=== PATIENT | male | born 1960 | race Two or more races ===

== ENCOUNTER 2024-06-25 22:37 | Inpatient (IN) | payer OTHER ==
[~2024-06-25] VITALS: Ht 172.7 cm; Wt 52.0 kg
--- NOTE | 2024-06-25 23:36 | DVH ---
EXAMINATION: AP portable chest radiograph CLINICAL HISTORY: seizure COMPARISON: None FINDINGS: Lead wires overlie the thorax. No dominant consolidation. The costophrenic angles appear clear. No sizable pleural effusion or pneu mothorax identified. The cardiomediastinal silhouette appears within normal limits given technique. IMPRESSION: No acute cardiopulmonary findings as visualized.
[2024-06-25] MEDS: SODIUM CHLORIDE 0.9% 1,000 ML IVB ONE (23:39)
--- NOTE | 2024-06-25 23:40 | DVH ---
EXAM: CT HEAD WITHOUT CONTRAST INDICATION: seizure TECHNIQUE: CT of the head without intravenous contrast. Radiation Dose : 1. Head: CT Dose: CTDI volume is 55 mGy. Dose-length product is 968 mGy*cm The dose indicators for CT are the volume Computed Tomography (CT) Dose Index (CTDIvol) and the Dose Length Product (DLP), and are measured in units of mGy and mGy-cm, respectively. These indicators are not patient dose, but values generated from the CT scanner acquisition factors. The report includes radiation exposure data for exposures received during this examination. COMPARISON: None FINDINGS: There is no evidence of acute intracranial hemorrhage, extra-axial collection, mass effect, midline s hift, herniation or hydrocephalus. The ventricles, sulci and cisterns are age appropriate. The abernathy-white differentiation is intact. Patchy periventricular and subcortical white matter hypoattenuation is nonspecific but may be related to small vessel ischemic disease. The visualized paranasal sinuses and mastoid air cells are clear. The surrounding soft tissues and osseous structures are unremarkable. IMPRESSION: 1. No acute intracranial abnormality. Radiation optimization: All CT scans at this facility use at least one of these dose optimization luisito hniques: automated exposure control mA and/or kV adjustment per patient size (includes targeted exam s where dose is matched to clinical indication) or iterative reconstruction.
[2024-06-25] MEDS: ACCU-CHEK COMFORT CURVE STRIP VI ONE (23:44)
[2024-06-25 23:46] VITALS: PULSE 96; RESP 13; O2SAT 95
[2024-06-26 00:10] LABS: Basophils # (auto) 0 10 ^3/uL (0-0.2); Basophils % (auto) 0.1 % (0.0-2.0); Eosinophils # (auto) 0 10 ^3/uL (0-0.8); Eosinophils % (auto) 0.1 % (0.0-7.0); Hematocrit 42.6 % (41.0-53.0); Hemoglobin 14.3 g/dL (13.5-17.5); Lymphocytes # (auto) 1.1 10 ^3/uL (0.4-5.4); Lymphocytes % (auto) 12.7 % (10.0-50.0); Mean Corpuscular Hemoglobin 30.3 pg (28.0-32.0); Mean Corpuscular Hgb Conc. 33.7 g/dL (32.0-36.0); Monocytes # (auto) 0.5 10 ^3/uL (0-1.3); Monocytes % (auto) 6.2 % (0.0-12.0); Neutrophils # (auto) 7.1 10 ^3/uL (1.6-8.6); Neutrophils % (auto) 80.9 % (37.0-80.0); Nucleated Red Blood Cells % 0.2 %; Platelet Count (auto) 246 10^3/uL (140-450); Red Blood Cells 4.73 10^6/uL (4.5-5.90); White Blood Cell 8.8 10^3/uL (4.4-10.8)
[2024-06-26 00:29] LABS: Alanine Aminotransferase 29 U/L (7-40); Albumin 3.9 g/dL (3.2-4.8); Alkaline Phosphatase 54 U/L (46-116); Anion Gap 7 (5-15); Aspartate Aminotransferase 23 U/L (13-40); BUN/Creatinine Ratio 21.6 (10.0-20.0); Blood Urea Nitrogen 21 mg/dL (9-23); Calcium 9.2 mg/dL (8.7-10.4); Carbon Dioxide 25 mmol/L (20-31); Magnesium 1.9 mg/dL (1.6-2.6); Sodium 141 mmol/L (136-145)
[2024-06-26 00:30] LABS: Bilirubin, Total 0.3 mg/dL (0.2-1.0); Chloride 109 mmol/L (98-107); Glucose 137 mg/dL (74-106); Total Protein 6.4 g/dL (5.7-8.2)
--- NOTE | 2024-06-26 00:33 | ED.PDOC ---
History of Present Illness HPI Comments 64 y/o M, with a Hx of 30 year alcohol sobriety, is BIBA for c/o seizure episode, today. Per EMS report, patient was reported to have had seizure episode of 2x minute in duration at-home, without prior history of, that was witnessed by spouse, who called. Seizure episode was commented by on scene to have been characterized by "twitching" and "eyes-rolling back." Patient was noted to have been A&Ox1 on scene when found by EMS staff and transitioned to A&Ox3 upon arrival to ED. At time of assessment, patient comments on having no recollection of events that transpired, today, including seizure episode event, and complains of a bite wound kulwinder, with associated pain, in the inside of his right cheek. Patient denies any additional injuries, incontinence, weakness, or other associated symptoms or modifiers at this time. Per spouse, who arrived to ED following initial assessment, patient was placed on baby ASA, recently, following a "mini stroke" he had 2x days ago. Chief Complaint: Seizure Time Seen by MD: 23:10 Reviewed Notes: Nurses Notes, International Nurse Notes, Medications, Allergies Allergies: Coded Allergies: NO KNOWN ALLERGIES (Unverified , 06/26/24) Information Source: Patient, Emergency Med Personnel, Spouse (came later following initial assessment and reported additional information ) Mode of Arrival: EMS Severity: Moderate Timing: Hours Duration: Minutes Prehospital treatment: 12 Lead EKG, Accucheck (119), Boilermaker'S Assistant Review of Systems: REVIEW OF SYSTEMS: No fever, no chills, or fatigue HEENT: No sore throat, no earache, no congestion, no neck pain. Cardiac: No chest pain. No palpitations. Lungs: No shortness of breath, no cough. GI: No nausea, no vomiting, no diarrhea, no constipation, no abdominal pain : No dysuria, frequency, or urgency. No hematuria. Musculoskeletal: No joint pain , no joint swelling, no extremity edema. Skin: No rash, no itching. Neuro: Seizure, no headache, no dizziness, no weakness Vital Signs Vital Signs Date Time Temp Pulse Resp B/P (MAP) Pulse Ox O2 Delivery O2 Flow Rate FiO2 06/26/24 05:50 60 19 124/82 (96) 96 06/25/24 23:46 Room Air* 0 21 06/25/24 23:46 97.8 97.8 Physical Exam General: Awake, alert and oriented. No acute distress. Skin: Skin in warm, dry and intact. Appropriate color for ethnicity. Nailbeds pink with no cyanosis. HEENT: The head is normocephalic and atraumatic. Conjunctivae are clear without exudates or hemorrhage. Sclera is non-icteric. EOM are intact. No signs of nystagmus. Eyelids are normal in appearance without swelling or lesions. Oral mucosa is pink and moist. PERRL. Neck: The neck is supple with normal range of motion. No JVD. Cardiac: Heart rate and rhythm are normal. No murmurs, gallops, or rubs are auscultated. Respiratory: No signs of respiratory distress. Lung sounds are clear in all lobes bilaterally without rales, ronchi, or wheezes. Abdominal: Abdomen is soft, non-tender without distention. Bowel sounds are present and normoactive in all four quadrants. Extremities: Upper and lower extremities are atraumatic in appearance without deformity or edema. Neurological: The patient is awake, alert and oriented to person and time, with normal speech but does not recall any events throughout the day, today. Speech is clear. There is no facial asymmetry. Dbxilv-kb-yooa test assessment was normal Psychiatric: Appropriate mood and affect. Good judgement and insight. No visual or auditory hallucinations. Past Medical History PAST MEDICAL HISTORY: Denies Surgical History: Denies all surgeries Family History Family History: Unknown Social History Smoker: Non-Smoker Alcohol: Sober (30+ years endorsement ) Drugs: Denies Drug Use Lives In: Home Was a procedure done? Was a procedure done?: No Differential Dx Considerations may include: seizure, pseudoseizure X-Ray, Labs, Meds, VS Vital Signs Date Time Temp Pulse Resp B/P (MAP) Pulse Ox O2 Delivery O2 Flow Rate FiO2 06/26/24 05:50 60 19 124/82 (96) 96 06/26/24 03:50 65 19 129/83 (98) 96 06/26/24 01:50 97 14 149/91 (110) 96 06/25/24 23:46 96 13 95 Room Air* 0 21 06/25/24 23:46 97.8 96 13 142/91 (108) 95 97.8 06/25/24 22:41 98.8 82 18 144/82 (102) 98 Lab Test 06/26/24 00:28 06/25/24 23:42 06/25/24 23:39 Range/Units Urine Color Light-yellow Yellow Urine Clarity Clear Clear Urine pH 6.5 5.0-9.0 Urine Specific [place] 1.024 1.001-1.035 Urine Protein Negative Negative Urine Ketones Trace Negative Urine Blood Negative Negative /uL Urine Nitrite Negative Negative Urine Bilirubin Negative Negative Urine Urobilinogen Normal Negative mg/dL Urine Leukocyte Esterase Negative Negative /uL Urine RBC <1 0 - 3 /hpf Urine WBC 1 0 - 3 /hpf Urine Squamous Epithelial Cells None seen <5 /hpf Urine Bacteria None seen None Seen /hpf Urine Mucus Few None Seen Urine Glucose Normal Normal mg/dL Urine Opiates Screen Neg NEGATIVE Urine Fentanyl Screen Neg NEGATIVE Urine Barbiturates Screen Neg NEGATIVE Urine Phencyclidine Screen Neg NEGATIVE Urine Amphetamines Screen Neg NEGATIVE Urine Benzodiazepines Screen Neg NEGATIVE Urine Cocaine Screen Neg NEGATIVE Urine Cannabinoids Screen Neg NEGATIVE POC Glucose 107 H 70-106 mg/dl White Blood Count 8.8 4.4-10.8 10^3/uL Red Blood Count 4.73 4.5-5.90 10^6/uL Hemoglobin 14.3 13.5-17.5 g/dL Hematocrit 42.6 41.0-53.0 % Mean Corpuscular Volume 90.0 80.0-100.0 fL Mean Corpuscular Hemoglobin 30.3 28.0-32.0 pg Mean Corpuscular Hemoglobin Concent 33.7 32.0-36.0 g/dL Red Cell Distribution Width 14.0 11.8-14.3 % Platelet Count 246 140-450 10^3/uL Mean Platelet Volume 8.0 6.9-10.8 fL Neutrophils (%) (Auto) 80.9 H 37.0-80.0 % Lymphocytes (%) (Auto) 12.7 10.0-50.0 % Monocytes (%) (Auto) 6.2 0.0-12.0 % Eosinophils (%) (Auto) 0.1 0.0-7.0 % Basophils (%) (Auto) 0.1 0.0-2.0 % Neutrophils # (Auto) 7.1 1.6-8.6 10 ^3/uL Lymphocytes # (Auto) 1.1 0.4-5.4 10 ^3/uL Monocytes # (Auto) 0.5 0-1.3 10 ^3/uL Eosinophils # (Auto) 0 0-0.8 10 ^3/uL Basophils # (Auto) 0 0-0.2 10 ^3/uL Nucleated Red Blood Cells 0.2 % Sodium Level 141 136-145 mmol/L Potassium Level 4.0 3.5-5.1 mmol/L Chloride Level 109 H 98-107 mmol/L Carbon Dioxide Level 25 20-31 mmol/L Anion Gap 7 5-15 Blood Urea Nitrogen 21 9-23 mg/dL Creatinine 0.97 0.700-1.30 mg/dL Glomerular Filtration Rate Calc 88 >90 mL/min BUN/Creatinine Ratio 21.6 H 10.0-20.0 Serum Glucose 137 H 74-106 mg/dL Calcium Level 9.2 8.7-10.4 mg/dL Magnesium Level 1.9 1.6-2.6 mg/dL Total Bilirubin 0.3 0.2-1.0 mg/dL Aspartate Amino Transferase (AST) 23 13-40 U/L Alanine Aminotransferase (ALT) 29 7-40 U/L Alkaline Phosphatase 54 46-116 U/L Total Protein 6.4 5.7-8.2 g/dL Albumin 3.9 3.2-4.8 g/dL Plasma/Serum Blood Alcohol < 3.0 <10 mg/dL Current Medications Medications (Trade) Dose Ordered Sig/Paola Route Start Time Stop Time Status Last Admin Diagnostic Test (Pha) (Accu-Chek Comfort Curve T) 1 strip ONCE ONCE 06/25/24 23:15 06/25/24 23:16 DC 06/25/24 23:44 Sodium Chloride 1,000 ml @ 1,000 mls/hr Q1H ONCE IVB 06/25/24 23:15 06/26/24 00:14 DC 06/25/24 23:39 Levetiracetam 100 ml @ 400 mls/hr ONCE ONCE IV 06/26/24 01:30 06/26/24 01:44 DC 06/26/24 01:[address] [address] Ph: [phone] DIAGNOSTIC IMAGING Diagnostic Imaging Report : [id number] Signed PATIENT: ZIBOBBY ACCT: [id number] UNIT: [id number] : 1960 LOC: ER ROOM / BED: / AGE / SEX: 64 / M ADM STATUS: REG ER SERVICE 10 ORDERING PHYSICIAN: CARLOS GABRIEL MD PROCEDURE(s): HWOCT - HEAD WITHOUT CONTRAST REASON: seizure ORDER NUMBER(s): [id number], ACCESSION NUMBER(s): [id number] EXAM: CT HEAD WITHOUT CONTRAST INDICATION: seizure TECHNIQUE: CT of the head without intravenous contrast. Radiation Dose : 1. Head: CT Dose: CTDI volume is 55 mGy. Dose-length product is 968 mGy*cm The dose indicators for CT are the volume Computed Tomography (CT) Dose Index (CTDIvol) and the Dose Length Product (DLP), and are measured in units of mGy and mGy-cm, respectively. These indicators are not patient dose, but values generated from the CT scanner acquisition factors. The report includes radiation exposure data for exposures received during this examination. COMPARISON: None FINDINGS: There is no evidence of acute intracranial hemorrhage, extra-axial collection, mass effect, midline shift, herniation or hydrocephalus. The ventricles, sulci and cisterns are age appropriate. The abernathy-white differentiation is intact. Patchy periventricular and subcortical white matter hypoattenuation is nonspecific but may be related to small vessel ischemic disease. The visualized paranasal sinuses and mastoid air cells are clear. The surrounding soft tissues and osseous structures are unremarkable. IMPRESSION: 1. No acute intracranial abnormality. Radiation optimization: All CT scans at this facility use at least one of these dose optimization techniques: automated exposure control mA and/or kV adjustment per patient size (includes targeted exams where dose is matched to clinical indication) or iterative reconstruction. ATED BY: MIRIAN HOLLAND MD DICTATED DATE/TIME: 06/25/242337 SIGNED BY: MIRIAN HOLLAND MD SIGNED DATE/TIME: 06/25/242337 CC: [place] [id number] Ph: [phone] DIAGNOSTIC IMAGING Diagnostic Imaging Report : [id number] Signed PATIENT: BOBBY PINON ACCT: [id number] UNIT: [id number] : 1960 LOC: ER ROOM / BED: / AGE / SEX: 64 / M ADM STATUS: REG ER SERVICE 10 ORDERING PHYSICIAN: CARLOS GABRIEL MD PROCEDURE(s): CXRP - CHEST PORTABLE REASON: seizure ORDER NUMBER(s): [id number], ACCESSION NUMBER(s): [id number] EXAMINATION: AP portable chest radiograph CLINICAL HISTORY: seizure COMPARISON: None FINDINGS: Lead wires overlie the thorax. No dominant consolidation. The costophrenic angles appear clear. No sizable pleural effusion or pneumothorax identified. The cardiomediastinal silhouette appears within normal limits given technique. IMPRESSION: No acute cardiopulmonary findings as visualized. ATED BY: JAMES PERDUE MD DICTATED DATE/TIME: 06/25/242332 SIGNED BY: JAMES PERDUE MD SIGNED DATE/TIME: 06/25/242332 CC: Time of 1ST Reevaluation: 23:40 Reevaluation 1ST: Unchanged Patient Education/Counseling: Diagnosis, Treatment Family Education/Counseling: Diagnosis, Treatment Departure 1 Departure Time of Disposition: 04:55 Impression: Primary Impression: Seizure Additional Impression: Altered mental status Disposition: 02 SHORT TERM HOSPITAL Condition: Stable Comments 64-year-old male with new onset seizure-like activity. Patient was evaluated in the emergency department, given 1 g of Keppra IV, 1 L bolus of normal saline. Per at bedside patient is still has not returned to his baseline. He is repeating himself, appears not to remember things that he normally would such as what medications he takes and what they are for. He is able to state the month and year. Discussed with Dr. Tee at [facility] who accepts patient for transfer Authorization number [id number] [facility] has no bed availability and authorizes admission at this facility. Extensive evaluation was performed in attempt to identify or rule out: (See differential diagnosis section) The following tests were ordered, and results were reviewed by me: (See diagnostic results section) The following test were independently interpreted by me: EKG-sinus rhythm no STEMI, chest x-ray-no acute disease I reviewed and agreed with the following test results read by other providers: N/A I reviewed the following notes from the pt's past medical encounters: (None available at this time) Additional information was gathered from interviewing the following independent historians: Patient's at bedside Discussion of management or test interpretation with external physician/other qualified health customer care specialist: Dr. Tee Addressed an acute or chronic illness that poses a threat to life or bodily function: Seizure Decision regarding hospitalization or escalation of hospital level of care: Risk and benefits of admission for further treatment of patient's condition was considered. Due to patient's current clinical condition, high risk of decline and poor outcome if discharged and need for further inpatient management and monitoring, patient will be admitted to the hospital. Critical Care Note Critical Care Time?: No Stability Stability form required: No Heart Score Heart Score: Heart Score Response (Comments) Value History N/A 0 EKG N/A 0 Age N/A 0 Risk Factors N/A 0 Troponin N/A 0 Total 0 I personally scribed for CARLOS GABRIEL MD ([email or web address]) on 06/26/24 at 00:33. Electronically submitted by Jake Maradiaga ([email or web address]). I personally scribed for CARLOS GABRIEL MD ([email or web address]) on 06/26/24 at 00:34. Electronically submitted by Jake Maradiaga ([email or web address]). I personally scribed for CARLOS GABRIEL MD ([email or web address]) on 06/26/24 at 05:35. Electronically submitted by Jake Maradiaga ([email or web address]). CARLOS GABRIEL MD Jun 26, 2024 00:33
[2024-06-26 00:35] LABS: Urine Bacteria None Seen /hpf (None Seen)
[2024-06-26 01:03] LABS: Urine Blood Negative /uL (Negative); Urine Clarity Clear (Clear); Urine Color Light-Yellow (Yellow); Urine Mucus FEW (None Seen); Urine Protein, UAD Negative (Negative); Urine Specific Gravity 1.024 (1.001-1.035); Urine Squamous Epithelial Cell None Seen /hpf (<5); Urine Urobilinogen Normal (Negative); Urine WBC 1 /hpf (0 - 3); Urine pH 6.5 (5.0-9.0)
[2024-06-26] MEDS: levETIRAcetam 1000 mg/100ml 100 ML IV ONE (01:36)
[2024-06-26 01:47] LABS: Blood Alcohol < 3.0 mg/dL (<10)
[2024-06-26 01:48] LABS: Amphetamine Screen, Urine Neg (NEGATIVE); Barbiturate Scree,Urine Neg (NEGATIVE); Benzodiazephine Screen, Urine Neg (NEGATIVE); Cannabinoid Screen, Urine Neg (NEGATIVE); Cocaine Screen, Urine Neg (NEGATIVE); Opiate Scree,Urine Neg (NEGATIVE); Phencyclidine Screen, Urine Neg (NEGATIVE)
[2024-06-26 08:06] VITALS: PULSE 65; RESP 11; O2SAT 95
--- NOTE | 2024-06-26 10:26 | ECG ---
[facility] Test Date: 2024-06-26 Test Time: 08:34:42 Pat Name: BOBBY PINON Department: ER Room: Gender: M Athletic Gear Custodian: LEO : 1960 Requested By: CARLOS GABRIEL Order Number: [id number] Reading MD: Measurements Intervals Preemption Rate: 67 P: 58 [place]: 147 QRS: 61 QRSD: 103 T: 16 QT: 375 QTc: 396 Interpretive Statements Sinus rhythm Minimal ST elevation, lateral leads Please click the below link to view image of tracing.
[2024-06-26] MEDS ORDERED: DOCUSATE SOD 100 MG CAP PO PRN (11:00)
[2024-06-26] MEDS ORDERED: ONDANSETRON HCL 4 MG/2 ML VIAL IV PRN (11:00)
[2024-06-26] MEDS ORDERED: NITROGLYCERIN 0.4 MG SL TAB SL PRN (11:00)
[2024-06-26] MEDS ORDERED: MORPHINE SULFATE INJ 2 MG/ml SYRG IV PRN (11:00)
[2024-06-26] MEDS ORDERED: HYDROcodone-ACET 5/325MG TAB PO PRN (11:00)
--- NOTE | 2024-06-26 11:08 | DVHHP2 ---
History of Present Illness Reason for Visit: Seizure disorder History of Present Illness The patient is a 64-year-old male who presented to [facility] ED accompanied by with complaint of seizures activity. As reported by , patient had seizure episode that lasted for 2 minutes at home so EMS were called. described activities as twitching and eyes rolling back episode, and very confused. When EMS arrived on the scene, patient regains his consciousness alert oriented x3, but unable to recall event. Patient was seen and evaluated in the ED, laboratory data shows WBC 8.8, platelets 246, sodium 141, potassium 4.0, BUN 21, creatinine 0.97, GFR 88, glucose 137, blood pressure 144/82, heart rate 70, temperature 97.8 F, O2 saturation 95% on room. On my assessment, at bedside, patient denied chest pain, no headache, no dizziness, no diaphoresis, no shortness of breath, no nausea, no vomiting, no fever, no chills. Patient was admitted for further evaluation and medical management. Past Medical History Denies past medical history Past Surgical History Denies all surgeries Family History Reviewed, noncontributory to the management of this case. Past Social History The patient lives at home, denies smoking, alcohol or illicit drugs abuse. Review of Systems Constitutional: Yes: Weakness; No: Fever, Chills, Sweats, Malaise, Other Eyes: No: Pain, Vision change, Conjunctivae inflammation, Eyelid inflammation, Other, Redness ENT: No: Ear pain, Ear discharge, Nose pain, Nose discharge, Nose congestion, Mouth pain, Mouth swelling, Throat pain, Throat swelling, Other Respiratory: No: Cough, Dry, Shortness of breath, SOB with excertion, Wheezing, Hemoptysis, Pleuritic Pain, Sputum, Wheezing, Other Cardiovascular: No: Chest Pain, Palpitations, Orthopnea, Paroxysmal Noc. Dyspnea, Edema, Lt Headedness, Other Gastrointestinal: No: Nausea, Vomiting, Abdominal Pain, Diarrhea, Constipation, Melena, Hematochezia, Other Genitourinary: No Dysuria, No Frequency, No Incontinence, No Hematuria, No Retention, No Other Musculoskeletal: No: other, neck pain, shoulder pain, arm pain, back pain, hand pain, leg pain, foot pain Skin: No: Rash, Lesions, Jaundice, Bruising, Other Neurological: Confusion, Seizures; No: Weakness, Numbness, Incoordination, Change in speech, Other Allergies: Coded Allergies: NO KNOWN ALLERGIES (Unverified , 06/26/24) Exam Vital Signs Vital Signs Date Time Temp Pulse Resp B/P (MAP) Pulse Ox O2 Delivery O2 Flow Rate FiO2 06/26/24 10:25 57 21 110/61 (77) 95 06/26/24 08:06 Room Air* 0 21 06/26/24 07:52 98.0 98.0 General Appearance: Alert, Cooperative, No acute distress, Other (Oriented x2) HEENT: Atraumatic, PERRLA, EOMI, Mucous membr. moist/pink Respiratory: Clear to auscultation, Normal air movement Cardiovascular: Regular rate, Normal S1, Normal S2, No murmurs Abdominal: Normal bowel sounds, Soft, No tenderness, No hepatospenomegaly, No masses Extremities: No clubbing, No cyanosis, No edema, Normal pulses, No tenderness/swelling Skin: No rashes, No breakdown Neuro: Normal speech, Normal tone, Sensation intact, Cranial nerves 3-12 NL, Reflexes 2+, Other (Generalized weakness) Psych/Mental Status: Mental status NL, Mood NL Labs/Xrays Labs Test 06/26/24 00:28 06/25/24 23:42 06/25/24 23:39 Range/Units Urine Color Light-yellow Yellow Urine Clarity Clear Clear Urine pH 6.5 5.0-9.0 Urine Specific [place] 1.024 1.001-1.035 Urine Protein Negative Negative Urine Ketones Trace Negative Urine Blood Negative Negative /uL Urine Nitrite Negative Negative Urine Bilirubin Negative Negative Urine Urobilinogen Normal Negative mg/dL Urine Leukocyte Esterase Negative Negative /uL Urine RBC <1 0 - 3 /hpf Urine WBC 1 0 - 3 /hpf Urine Squamous Epithelial Cells None seen <5 /hpf Urine Bacteria None seen None Seen /hpf Urine Mucus Few None Seen Urine Glucose Normal Normal mg/dL Urine Opiates Screen Neg NEGATIVE Urine Fentanyl Screen Neg NEGATIVE Urine Barbiturates Screen Neg NEGATIVE Urine Phencyclidine Screen Neg NEGATIVE Urine Amphetamines Screen Neg NEGATIVE Urine Benzodiazepines Screen Neg NEGATIVE Urine Cocaine Screen Neg NEGATIVE Urine Cannabinoids Screen Neg NEGATIVE POC Glucose 107 H 70-106 mg/dl White Blood Count 8.8 4.4-10.8 10^3/uL Red Blood Count 4.73 4.5-5.90 10^6/uL Hemoglobin 14.3 13.5-17.5 g/dL Hematocrit 42.6 41.0-53.0 % Mean Corpuscular Volume 90.0 80.0-100.0 fL Mean Corpuscular Hemoglobin 30.3 28.0-32.0 pg Mean Corpuscular Hemoglobin Concent 33.7 32.0-36.0 g/dL Red Cell Distribution Width 14.0 11.8-14.3 % Platelet Count 246 140-450 10^3/uL Mean Platelet Volume 8.0 6.9-10.8 fL Neutrophils (%) (Auto) 80.9 H 37.0-80.0 % Lymphocytes (%) (Auto) 12.7 10.0-50.0 % Monocytes (%) (Auto) 6.2 0.0-12.0 % Eosinophils (%) (Auto) 0.1 0.0-7.0 % Basophils (%) (Auto) 0.1 0.0-2.0 % Neutrophils # (Auto) 7.1 1.6-8.6 10 ^3/uL Lymphocytes # (Auto) 1.1 0.4-5.4 10 ^3/uL Monocytes # (Auto) 0.5 0-1.3 10 ^3/uL Eosinophils # (Auto) 0 0-0.8 10 ^3/uL Basophils # (Auto) 0 0-0.2 10 ^3/uL Nucleated Red Blood Cells 0.2 % Sodium Level 141 136-145 mmol/L Potassium Level 4.0 3.5-5.1 mmol/L Chloride Level 109 H 98-107 mmol/L Carbon Dioxide Level 25 20-31 mmol/L Anion Gap 7 5-15 Blood Urea Nitrogen 21 9-23 mg/dL Creatinine 0.97 0.700-1.30 mg/dL Glomerular Filtration Rate Calc 88 >90 mL/min BUN/Creatinine Ratio 21.6 H 10.0-20.0 Serum Glucose 137 H 74-106 mg/dL Calcium Level 9.2 8.7-10.4 mg/dL Magnesium Level 1.9 1.6-2.6 mg/dL Total Bilirubin 0.3 0.2-1.0 mg/dL Aspartate Amino Transferase (AST) 23 13-40 U/L Alanine Aminotransferase (ALT) 29 7-40 U/L Alkaline Phosphatase 54 46-116 U/L Total Protein 6.4 5.7-8.2 g/dL Albumin 3.9 3.2-4.8 g/dL Plasma/Serum Blood Alcohol < 3.0 <10 mg/dL PATIENT: CAROL PINON: [id number] UNIT: [id number] : 1960 LOC: ER ROOM / BED: / AGE / SEX: 64 / M ADM STATUS: REG ER SERVICE [id number] ORDERING PHYSICIAN: CARLOS GABRIEL MD PROCEDURE(s): HWOCT - HEAD WITHOUT CONTRAST REASON: seizure ORDER NUMBER(s): [id number], ACCESSION NUMBER(s): [id number] EXAM: CT HEAD WITHOUT CONTRAST INDICATION: seizure TECHNIQUE: CT of the head without intravenous contrast. Radiation Dose: 1. Head: CT Dose: CTDI volume is 55 mGy. Dose-length product is 968 mGy*cm The dose indicators for CT are the volume Computed Tomography (CT) Dose Index (CTDIvol) and the Dose Length Product (DLP), and are measured in units of mGy and mGy-cm, respectively. These indicators are not patient dose, but values generated from the CT scanner acquisition factors. The report includes radiation exposure data for exposures received during this examination. COMPARISON: None FINDINGS: There is no evidence of acute intracranial hemorrhage, extra-axial collection, mass effect, midline shift, herniation or hydrocephalus. The ventricles, sulci and cisterns are age appropriate. The abernathy-white differentiation is intact. Patchy periventricular and subcortical white matter hypoattenuation is nonspecific but may be related to small vessel ischemic disease. The visualized paranasal sinuses and mastoid air cells are clear. The surrounding soft tissues and osseous structures are unremarkable. IMPRESSION: 1. No acute intracranial abnormality. ORDERING PHYSICIAN: CARLOS GABRIEL MD PROCEDURE(s): CXRP - CHEST PORTABLE REASON: seizure ORDER NUMBER(s): [id number], ACCESSION NUMBER(s): [id number] EXAMINATION: AP portable chest radiograph CLINICAL HISTORY: seizure COMPARISON: None FINDINGS: Lead wires overlie the thorax. No dominant consolidation. The costophrenic angles appear clear. No sizable pleural effusion or pneumothorax identified. The cardiomediastinal silhouette appears within normal limits given technique. IMPRESSION: No acute cardiopulmonary findings as visualized. Assessment/Plan Assessment/Plan Seizure disorder Altered mental status Generalized weakness Plan 1. Admit to telemetry unit 2. Breathing treatment 3. Pain control management 4. Management of fluids and electrolytes 5. Consultation for hospitalist 6. Diagnostic tests-head CT 7. DVT prophylaxis-on SCDs 8. Repeat labs CBC, CMP in a.m. 9. Continue with current medical management 10. Treatment plan discussed with patient and RN. Patient verbalized understanding. Plan discussed with: Patient, Spouse (), Other (RN) My Orders Orders - SRINIVASA VIGIL DNP Procedure Category Date Status Time Levetiracetam Ivpb PHA 06/26/24 Transmitted Keppra 22:00 Admit ADMIT 06/26/24 Transmitted 10:58 Allergies ELVIN 06/26/24 Transmitted 10:58 Code Status CODE 06/26/24 Transmitted 10:58 Sodium Chloride Lock PHA 06/26/24 Transmitted (Saline Lock Ns) 14:00 Oxygen Per Hour RT 06/26/24 Transmitted 10:58 Hydrocodone-Acet PHA 06/26/24 Transmitted 5/325mg Tab (Falls [place] Rough 11:00 Ondansetron Hcl PHA 06/26/24 Transmitted (Zofran) 11:00 Docusate Sodium PHA 06/26/24 Transmitted Capsule (Colace 11:00 Fall Risk Precautions [facility] 06/26/[address] 10:58 Complete Blood Count LAB 06/27/24 Verified 04:00 Comprehensive LAB 06/27/24 Verified Metabolic Panel 04:00 Cardiac DIET 06/26/24 Transmitted Diet-2gna,Lofat,Lochol Lunch Condition: Serious ELVIN 06/26/24 Transmitted 10:58 Acetaminophen Tablet PHA 06/26/24 Transmitted (Tylenol Tablet) 11:00 Sequential ELVIN 06/26/24 Transmitted Compression Device Nitroglycerin PHA 06/26/24 Transmitted Sublingual (Ntrostat 11:00 Morphine Sulfate PHA 06/26/24 Transmitted Injection 11:00 Notify Of Changes [facility] 06/26/24 Transmitted From Base 10:58 Block Placer For [facility] 06/26/24 Transmitted 24 Hours 10:58 Emergency Dysrhythmia ELVIN 06/26/24 Transmitted Protocol 10:58 Rhythm Strips Once ELVIN 06/26/24 Transmitted Every Shift 10:58 Oxygen By Nasal RT 06/26/24 Transmitted Cannula 10:58 Hemoglobin A1c LAB 06/26/24 Transmitted 10:58 Problem List: (1) Seizure disorder (2) Altered mental status (3) Generalized weakness Date of Service: Jun 26, 2024 Billing Provider: SRINIVASA VIGIL DNP Common Visit Codes: [id number] INP/OBS CARE (HIGH) SRINIVASA VIGIL DNP Jun 26, 2024 11:08
[2024-06-26] MEDS: ACETAMINOPHEN 325 MG TAB PO PRN (11:24)
[2024-06-26] MEDS: SODIUM CHLOR 0.9% PF (SALINE LOCK) 10ML VIAL/SYR IV SCH (14:38)
[2024-06-26 19:30] VITALS: PULSE 65; RESP 13; O2SAT 94
[2024-06-26] MEDS: levETIRAcetam 500 mg/100ml 100 ML IV SCH (22:25)
[2024-06-26 22:45] VITALS: BP 149/94; PULSE 68; RESP 18; TEMP 98.2; O2SAT 98
[2024-06-26 22:57] VITALS: PULSE 68; RESP 18; O2SAT 98
[2024-06-26] MEDS ORDERED: IBUP-1454 PO (23:58)
[2024-06-26] MEDS ORDERED: MICO2CRE88 EX (23:58)
[2024-06-26] MEDS ORDERED: ASCO500T11 GT (23:58)
[2024-06-26] MEDS ORDERED: TADA5TAB11 PO ×2 (23:58)
[2024-06-26] MEDS ORDERED: CHOL20007 OR (23:58)
[2024-06-26] MEDS ORDERED: ASPI325T6 PO (23:58)
[2024-06-26] MEDS ORDERED: B CO PO (23:58)
[2024-06-27] VITALS (8 sets, daily range): BP systolic 123–138; BP diastolic 75–89; PULSE 53–67; RESP 16–18; TEMP 98–98.3; O2SAT 94–99
[2024-06-27 08:09] LABS: Alanine Aminotransferase 30 U/L (7-40); Albumin 3.7 g/dL (3.2-4.8); Alkaline Phosphatase 58 U/L (46-116); Anion Gap 6 (5-15); Aspartate Aminotransferase 20 U/L (13-40); BUN/Creatinine Ratio 13.7 (10.0-20.0); Bilirubin, Total 0.8 mg/dL (0.2-1.0); Blood Urea Nitrogen 13 mg/dL (9-23); Calcium 9.4 mg/dL (8.7-10.4); Carbon Dioxide 27 mmol/L (20-31); Glucose 92 mg/dL (74-106); Potassium 4.3 mmol/L (3.5-5.1); Sodium 141 mmol/L (136-145); Total Protein 6.1 g/dL (5.7-8.2)
[2024-06-27 08:10] LABS: Basophils # (auto) 0 10 ^3/uL (0-0.2); Basophils % (auto) 0.2 % (0.0-2.0); Eosinophils # (auto) 0 10 ^3/uL (0-0.8); Eosinophils % (auto) 0.5 % (0.0-7.0); Hematocrit 44.5 % (41.0-53.0); Hemoglobin 15.1 g/dL (13.5-17.5); Lymphocytes # (auto) 1.4 10 ^3/uL (0.4-5.4); Lymphocytes % (auto) 27.1 % (10.0-50.0); Mean Corpuscular Hemoglobin 30.4 pg (28.0-32.0); Mean Corpuscular Volume 89.5 fL (80.0-100.0); Monocytes # (auto) 0.5 10 ^3/uL (0-1.3); Monocytes % (auto) 10.1 % (0.0-12.0); Neutrophils # (auto) 3.3 10 ^3/uL (1.6-8.6); Neutrophils % (auto) 62.1 % (37.0-80.0); Nucleated Red Blood Cells % 0.1 %; Platelet Count (auto) 248 10^3/uL (140-450); Red Blood Cells 4.97 10^6/uL (4.5-5.90); Red Cell Distribution Width 13.8 % (11.8-14.3); White Blood Cell 5.3 10^3/uL (4.4-10.8)
[2024-06-27 08:34] LABS: Chloride 108 mmol/L (98-107)
--- NOTE | 2024-06-27 11:54 | DVHPN2 ---
Progress Note Date Seen: Jun 27, 2024 Medical Necessity Reason Pt with a Central, PICC or Fol: No Subjective Patient reports: No new complaints Review of Systems: HEENT:Normal, CVS:Normal, RESPIRATORY:Normal, GI:Normal, :Normal, MSK:Normal, NEURO:Normal Objective vital signs Vital Sign Date Time Temp Pulse Resp B/P (MAP) Pulse Ox O2 Delivery O2 Flow Rate FiO2 06/27/24 09:00 98.0 53 16 128/75 (92) 95 98.0 06/26/24 22:57 Room Air* 0 21 Total Intake and Output 06/26/24 06/26/24 06/27/24 15:00 23:00 07:00 Intake Total 0 ml Output Total 500 ml Balance -500 ml 0 ml medications Current Medications Medications Dose Ordered Sig/Paola Route Start Time Stop Time Status Last Admin Dose Admin Levetiracetam 100 ml @ 400 mls/hr BID IV 06/26/24 22:00 06/27/24 09:34 400 MLS/HR Sodium Chloride 10 ml Q8HR IV 06/26/24 14:00 06/27/24 05:48 10 ML Acetaminophen/ Hydrocodone Bitart 1 tab Q4HP PRN PO 06/26/24 11:00 Ondansetron HCl 4 mg Q4HP PRN IV 06/26/24 11:00 Docusate Sodium 100 mg BIDPRN PRN PO 06/26/24 11:00 Acetaminophen 650 mg Q6HP PRN PO 06/26/24 11:00 06/26/24 11:24 650 MG Nitroglycerin 0.4 mg Q5MINP PRN SL 06/26/24 11:00 Morphine Sulfate 2 mg Q30M PRN IV 06/26/24 11:00 Examination: GENERAL:Normal, HEENT:Normal, NECK:Normal, LUNGS:Normal, CVS:Normal, ABDOMEN:Normal, MSK:Normal, SKIN:Normal, NEURO:Normal, :Normal laboratory and microbiology Laboratory Tests 06/27/24 06:50 Test 06/27/24 06:50 Range/Units Serum Glucose 92 74-106 mg/dL Problem List/Assessment/Plan Problem List/Assessment/Plan #1 new onset seizure: mri brain, neuro eval #2 encephalopathy- post ictal advance care planning- full code- time spent 19 mins Plan discussed with: Patient My Orders My Orders Orders - CHEYENNE SIMENTAL MD Procedure Category Date Status Time Brain Head Wo Contrast MRI 06/27/24 Verified 11:50 Lorazepam 2mg/Ml Inj PHA 06/27/24 Verified (Ativan Inj) 12:00 * Neurology Consult CONS 06/27/24 Verified 11:50 Date of Service: Jun 27, 2024 Billing Provider: CHEYENNE SIMENTAL MD Common Visit Codes: [id number] INP/OBS CARE(HIGH) Secondary Visit Codes: [id number] CARE PLAN 30 MINUTES CHEYENNE SIMENTAL MD Jun 27, 2024 11:54
[2024-06-27] MEDS ORDERED: LORazepam 2MG/ML-1ML VIAL IV ONE (12:00)
--- NOTE | 2024-06-27 13:07 | DVH ---
CLINICAL INDICATION: 64 years old, Male; seizure. COMPARISON: CT dated 06/25/2024. TECHNIQUE: Multisequence multiplanar MRI images of the brain were obtained without contrast. FINDINGS: No acute infarct or hemorrhage. No mass or midline shift. Ventricles and sulci are within normal limits. Basal cisterns are patent. Lobulated T2 hyperintense signal in the central aspect of t he babak measuring up to 1.0 x 0.4 cm, of uncertain etiology. Demonstrates predominantly T1 hypointens e and FLAIR hyperintense signal with some subtle FLAIR hyperintensity along its periphery. No associa jessa hypointense signal seen on the gradient echo images in this location. Paranasal sinuses are clear . Orbits are grossly unremarkable. IMPRESSION: 1. No evidence of acute intracranial abnormality. 2. Small T2 hyperintense lesion in the central aspect of the babak, may be sequela of chronic ischemic change or nonspecific cystic change. Correlate with clinical findings. If clinically indicated post contrast imaging be obtained.
--- NOTE | 2024-06-27 20:13 | DVHINCON2 ---
Date of service: Jun 27, [address] Longo Reason for Consultation Seizure History of Present Illness Mr. Fontaine is a 64 years old right-handed gentleman with a history of hypertension, the patient was brought to the [facility] on 06/25/2024 with a chief company of seizure activity. At this time, he is alert, fully oriented, he and his provided the following history He remembers going to bed, but the next memory was waking up in the emergency room of the [facility] and he was said to have seizure, and he has a tongue biting. His family reported shaking all over body with eyes rolling back. The patient was never had similar problems previously, he denies a history of olfactory hallucination, head trauma, intracranial infection, or fam iliana history of seizure disorder In 2021, when he was vaping tobacco, he developed slurred speech, mild confusion, not able to express himself properly, general weakness, the symptoms persisted for about 30 minutes, the patient was seen in the [facility] and he was said to have a TIA, he was discharged with aspirin 325 mg daily, atorvastatin 80 mg daily, but he stopped taking 2-3 months later For about 10 years, once every three to six months, he can not move at all on waking up though he is awake, this is associated with a dreaming feeling. He denies excessive daytime sleepiness Urinalysis, 06/26/2024: Unremarkable UDS, 06/26/2024: Negative Alcohol plasma, 06/25/2024: <3 CBC, 06/27/24: Unremarkable CMP, 06/27/2024: Unremarkable MRI head, 06/27/2024: 1. No evidence of acute intracranial abnormality. 2. Small T2 hyperintense lesion in the central aspect of the babak, may be sequela of chronic ischemic change or nonspecific cystic change. Correlate with clinical findings. If clinically indicated postcontrast imaging be obtained Past Medical History Hypertension Past Surgical History Right elbow surgery, hernia repair Family History: Patient reports no known family medical history. Family History Hypertension, diabetes, deafness, stroke Social History He was tobacco smoke, he denies a history of alcohol or recreational substances abuse Allergies: Coded Allergies: NO KNOWN ALLERGIES (Unverified , 06/26/24) Home Meds Reported Medications Miconazole Nitrate (Topical) (ANTIFUNGAL) 2 % Cre, 1 % EX PRN, CRE 06/26/24 Aspirin (Aspirin) 325 Mg Tab, 81 MG PO DAILY for 30 Days, MG 06/26/24 B Complex W/ C (Vitamin B Complex/Vitamin) 1 Tab Tab, 1 TAB PO DAILY, TAB 06/26/24 Ascorbic Acid (VITAMIN C TABLET) 500 Mg Tb, 500 MG GT DAILY, TAB 06/26/24 Cholecalciferol (VITAMIN D3) 2,000 Unit Tab, 1000 UNIT OR DAILY, TAB 06/26/24 Tadalafil (Cialis) 5 Mg Tab, 20 MG PO EOD, TAB 06/26/24 Ibuprofen (Ibuprofen) 600 Mg Tab, 600 MG PO Q6HPRN, MG 0 Refills 06/26/24 Tadalafil (Cialis) 5 Mg Tab, 5 MG PO DAILY, TAB 06/26/24 Current Medications Current Medications Medications (Trade) Dose Ordered Sig/Paola Route PRN Reason Start Time Stop Time Status Last Admin Levetiracetam 100 ml @ 400 mls/hr BID IV 06/26/24 22:00 06/27/24 09:34 Review of Systems As above, the other systems are negative Vital Signs Vital Signs Date Time Temp Pulse Resp B/P (MAP) Pulse Ox O2 Delivery O2 Flow Rate FiO2 06/27/24 17:00 98.0 60 16 138/89 (105) 98 98.0 06/27/24 08:00 Room Air* 0 21 Physical Exam GENERAL EXAM: General: the patient is well developed and nourished. No acute distress. HEENT: Normocephalic, neck is supple, no carotid bruits. No mass. RESPIRATORY: Normal respiratory effort with symmetrical lung expansion. Lungs clear to auscultation. CARDIOVASCULAR: Regular rate and rhythm with no murmurs. S1, S2. ABDOMEN: Soft, nontender, normal bowel sound NEUROLOGICAL: MENTAL STATUS: Awake and alert. Oriented to person, place, time and general circumstances. Able to give personal history. SPEECH, LANGUAGE, HIGHER CORTICAL FUNCTION: no aphasia or dysathria. CRANIAL NERVES: #2: Intact visual ivck to confrontation. The optic discs were sharp #3,4,6: Pupils are equal, round and reactive. EOMs full and conjugate. No nystagmus. #5: Facial sensation intact in all three divisions bilaterally. Mandibular strength intact. #7: Facial muscles symmetrical and strength intact. #8: Hearing grossly normal to voice. #9,10: Uvula and soft palate rise in the midline. Swallow and voice are normal. #11: Trapezius and sternomastoid strength intact bilaterally. #12: Tongue midline. No fasciculations or atrophy. SENSATION: Sensation to touch and pinprick is normal. MOTOR: Normal tone in the upper and lower extremity. Normal muscle bulk. No fasciculations. No abnormal movements or posturing. Muscle strength of the major groups in the upper extremities is 5/5. Muscle strength of the major groups in the lower extremities is 5/5. REFLEXES: Deep tendon reflexes are symmetrical. No pathological reflexes. CEREBELLAR/COORDINATION: Finger to nose and heel to gutierrez are normal bilaterally. GAIT/STATION: deferred. Labs/Diagnostic Data Labs Test 06/27/24 06:50 06/26/24 00:28 06/25/24 23:42 06/25/24 23:39 Range/Units White Blood Count 5.3 # 4.4-10.8 10^3/uL Red Blood Count 4.97 4.5-5.90 10^6/uL Hemoglobin 15.1 13.5-17.5 g/dL Hematocrit 44.5 41.0-53.0 % Mean Corpuscular Volume 89.5 80.0-100.0 fL Mean Corpuscular Hemoglobin 30.4 28.0-32.0 pg Mean Corpuscular Hemoglobin Concent 34.0 32.0-36.0 g/dL Red Cell Distribution Width 13.8 11.8-14.3 % Platelet Count 248 140-450 10^3/uL Mean Platelet Volume 8.0 6.9-10.8 fL Neutrophils (%) (Auto) 62.1 37.0-80.0 % Lymphocytes (%) (Auto) 27.1 10.0-50.0 % Monocytes (%) (Auto) 10.1 0.0-12.0 % Eosinophils (%) (Auto) 0.5 0.0-7.0 % Basophils (%) (Auto) 0.2 0.0-2.0 % Neutrophils # (Auto) 3.3 1.6-8.6 10 ^3/uL Lymphocytes # (Auto) 1.4 0.4-5.4 10 ^3/uL Monocytes # (Auto) 0.5 0-1.3 10 ^3/uL Eosinophils # (Auto) 0 0-0.8 10 ^3/uL Basophils # (Auto) 0 0-0.2 10 ^3/uL Nucleated Red Blood Cells 0.1 % Sodium Level 141 136-145 mmol/L Potassium Level 4.3 3.5-5.1 mmol/L Chloride Level 108 H 98-107 mmol/L Carbon Dioxide Level 27 20-31 mmol/L Anion Gap 6 5-15 Blood Urea Nitrogen 13 9-23 mg/dL Creatinine 0.95 0.700-1.30 mg/dL Glomerular Filtration Rate Calc 91 >90 mL/min BUN/Creatinine Ratio 13.7 10.0-20.0 Serum Glucose 92 74-106 mg/dL Calcium Level 9.4 8.7-10.4 mg/dL Total Bilirubin 0.8 0.2-1.0 mg/dL Aspartate Amino Transferase (AST) 20 13-40 U/L Alanine Aminotransferase (ALT) 30 7-40 U/L Alkaline Phosphatase 58 46-116 U/L Total Protein 6.1 5.7-8.2 g/dL Albumin 3.7 3.2-4.8 g/dL Urine Color Light-yellow Yellow Urine Clarity Clear Clear Urine pH 6.5 5.0-9.0 Urine Specific [place] 1.024 1.001-1.035 Urine Protein Negative Negative Urine Ketones Trace Negative Urine Blood Negative Negative /uL Urine Nitrite Negative Negative Urine Bilirubin Negative Negative Urine Urobilinogen Normal Negative mg/dL Urine Leukocyte Esterase Negative Negative /uL Urine RBC <1 0 - 3 /hpf Urine WBC 1 0 - 3 /hpf Urine Squamous Epithelial Cells None seen <5 /hpf Urine Bacteria None seen None Seen /hpf Urine Mucus Few None Seen Urine Glucose Normal Normal mg/dL Urine Opiates Screen Neg NEGATIVE Urine Fentanyl Screen Neg NEGATIVE Urine Barbiturates Screen Neg NEGATIVE Urine Phencyclidine Screen Neg NEGATIVE Urine Amphetamines Screen Neg NEGATIVE Urine Benzodiazepines Screen Neg NEGATIVE Urine Cocaine Screen Neg NEGATIVE Urine Cannabinoids Screen Neg NEGATIVE POC Glucose 107 H 70-106 mg/dl Hemoglobin A1c 5.4 <5.7 % A1C Magnesium Level 1.9 1.6-2.6 mg/dL Plasma/Serum Blood Alcohol < 3.0 <10 mg/dL Assessment New onset grand mal seizure TIA in 2021, ? Rule out partial complex seizure Sleep paralysis Plan/Recommendation Monitoring Supportive treatment Telemetry EEG Keppra 500 mg b.i.d. for time being Ativan for seizure breakthrough Avoid sleep deprivation Avoid alcohol Avoid street drugs He has being advised not drive and he is cleared DMV report in the chart No treatment for the sleep paralysis More recommendation per clinical course Prognosis: Poor This medical document was created using an electronic medical record system with [employer] dictation system. Although this document has been carefully reviewed, there may still be some phonetic and typographical errors. These areas are purely typographical due to imperfections of the software programs, and do not reflect any compromise in the patient's medical care. Plan discussed with: Patient, Other HILDA MEDRANO MD Jun 27, 2024 20:13
[2024-06-27] MEDS ORDERED: LORazepam 2MG/ML-1ML VIAL IV PRN (21:00)
[2024-06-28] VITALS (9 sets, daily range): BP systolic 105–144; BP diastolic 60–84; PULSE 58–79; RESP 16–20; TEMP 36.8; O2SAT 96–98
--- NOTE | 2024-06-28 11:46 | DVHDS2 ---
Discharge Summary Date of Admission Jun 26, 2024 at 10:58 Date of Discharge: Jun 28, 2024 Labs/Diagnostic Data: Laboratory Results Test 06/27/24 06:50 06/26/24 00:28 06/25/24 23:42 06/25/24 23:39 White Blood Count 5.3 10^3/uL (4.4-10.8) Red Blood Count 4.97 10^6/uL (4.5-5.90) Hemoglobin 15.1 g/dL (13.5-17.5) Hematocrit 44.5 % (41.0-53.0) Mean Corpuscular Volume 89.5 fL (80.0-100.0) Mean Corpuscular Hemoglobin 30.4 pg (28.0-32.0) Mean Corpuscular Hemoglobin Concent 34.0 g/dL (32.0-36.0) Red Cell Distribution Width 13.8 % (11.8-14.3) Platelet Count 248 10^3/uL (140-450) Mean Platelet Volume 8.0 fL (6.9-10.8) Neutrophils (%) (Auto) 62.1 % (37.0-80.0) Lymphocytes (%) (Auto) 27.1 % (10.0-50.0) Monocytes (%) (Auto) 10.1 % (0.0-12.0) Eosinophils (%) (Auto) 0.5 % (0.0-7.0) Basophils (%) (Auto) 0.2 % (0.0-2.0) Neutrophils # (Auto) 3.3 10 ^3/uL (1.6-8.6) Lymphocytes # (Auto) 1.4 10 ^3/uL (0.4-5.4) Monocytes # (Auto) 0.5 10 ^3/uL (0-1.3) Eosinophils # (Auto) 0 10 ^3/uL (0-0.8) Basophils # (Auto) 0 10 ^3/uL (0-0.2) Nucleated Red Blood Cells 0.1 % Sodium Level 141 mmol/L (136-145) Potassium Level 4.3 mmol/L (3.5-5.1) Chloride Level 108 mmol/L (98-107) Carbon Dioxide Level 27 mmol/L (20-31) Anion Gap 6 (5-15) Blood Urea Nitrogen 13 mg/dL (9-23) Creatinine 0.95 mg/dL (0.700-1.30) Glomerular Filtration Rate Calc 91 mL/min (>90) BUN/Creatinine Ratio 13.7 (10.0-20.0) Serum Glucose 92 mg/dL (74-106) Calcium Level 9.4 mg/dL (8.7-10.4) Total Bilirubin 0.8 mg/dL (0.2-1.0) Aspartate Amino Transferase (AST) 20 U/L (13-40) Alanine Aminotransferase (ALT) 30 U/L (7-40) Alkaline Phosphatase 58 U/L (46-116) Total Protein 6.1 g/dL (5.7-8.2) Albumin 3.7 g/dL (3.2-4.8) Urine Color Light-yellow (Yellow) Urine Clarity Clear (Clear) Urine pH 6.5 (5.0-9.0) Urine Specific [place]ita 1.024 (1.001-1.035) Urine Protein Negative (Negative) Urine Ketones Trace (Negative) Urine Blood Negative /uL (Negative) Urine Nitrite Negative (Negative) Urine Bilirubin Negative (Negative) Urine Urobilinogen Normal mg/dL (Negative) Urine Leukocyte Esterase Negative /uL (Negative) Urine RBC <1 /hpf (0 - 3) Urine WBC 1 /hpf (0 - 3) Urine Squamous Epithelial Cells None seen /hpf (<5) Urine Bacteria None seen /hpf (None Seen) Urine Mucus Few (None Seen) Urine Glucose Normal mg/dL (Normal) Urine Opiates Screen Neg (NEGATIVE) Urine Fentanyl Screen Neg (NEGATIVE) Urine Barbiturates Screen Neg (NEGATIVE) Urine Phencyclidine Screen Neg (NEGATIVE) Urine Amphetamines Screen Neg (NEGATIVE) Urine Benzodiazepines Screen Neg (NEGATIVE) Urine Cocaine Screen Neg (NEGATIVE) Urine Cannabinoids Screen Neg (NEGATIVE) POC Glucose 107 mg/dl (70-106) Hemoglobin A1c 5.4 % A1C (<5.7) Magnesium Level 1.9 mg/dL (1.6-2.6) Plasma/Serum Blood Alcohol < 3.0 mg/dL (<10) Other Laboratory Tests 06/27/24 06:50 Brief Hx & Hospital Course: see dictated note Condition at Discharge: Good Final Diagnosis/Problems List seizure Discharge Disposition: Home Discharge Instruct/Medications Diet: Cardiac 2g Na,low cholest Activity: No Restrictions, As Tolerated Follow Up/Referral: fu with duong Medications: resume home meds script to pharmacy dc if ok with dr Sharpe after eeg Discharge Statement: "Patient was advised to return to the ER or call 911 if any headaches, dizziness, shortness of breath, chest pain, abdominal pain, bleeding, fevers, or worsening of medical condition. Patient was counseled about treatment plan, medications, possible side effects, patientverbalized understanding. All questions were answered to the best of my ability. This discharge took greater then 30 minutes in planning, reviewing documentation, counseling the patient, and discussing with other team members." ASSESSMENT ASSESSMENT Assessment seizure Date of Service: Jun 28, 2024 Billing Provider: CHEYENNE SIMENTAL MD Common Visit Codes: 01704-TTS/OBS DISCH DAY >30min CHEYENNE SIMENTAL MD Jun 28, 2024 11:45
[2024-06-28] MEDS ORDERED: KEP500T PO (11:47)
--- NOTE | 2024-06-28 11:55 | DVHDS ---
DATE OF DISCHARGE: 06/28/2024 The patient is a 64-year-old gentleman who was admitted with history of seizure activity and subsequent alteration in level of consciousness. The patient has previous history of TIA. HOSPITAL COURSE: The patient had an MRI of the brain that showed no acute abnormality. The patient had T2 hyperintense lesion in the central aspect of the babak. The patient was seen in Neurology consult by Dr. Sharpe. The patient's tox screen was negative. Chemistries were within normal limits. The patient was started on treatment with Keppra. The patient will have an EEG prior to discharge. The patient will be discharged home if cleared by Dr. Sharpe to be on Keppra 500 mg b.i.d. and follow up with his primary and neurologist at [place]. The patient will also stop the supplements that he was taking. FINAL DIAGNOSES: * Likely new-onset seizure. * Encephalopathy, postictal. * History of transient ischemic attack. Time spent in discharge planning and review of plan with the patient, data communications software consultant, and nursing was 38 minutes. MD MARIA LUZ Campos/YAO TID: [id number] RECEIPT: [id number]
--- NOTE | 2024-06-28 22:00 | DVHPN2 ---
Progress Note - Dictate Date Seen: Jun 28, 2024 Medical Necessity Reason Pt with a Central, PICC or Fol: No Subjective Mr. Fontaine is a 64 years old right-handed gentleman with a history of hypertension, the patient was brought to the [facility] on 06/25/2024 with a chief company of seizure activity. I have seen and examined the patient, I have discussed with his nurse, I have spent time discussing with him about my impression, this including EEG and MR reports The case was discussed with Urinalysis, 06/26/2024: Unremarkable UDS, 06/26/2024: Negative Alcohol plasma, 06/25/2024: <3 CBC, 06/27/24: Unremarkable CMP, 06/27/2024: Unremarkable EEG, 06/28/2024: Normal MRI head, 06/27/2024: 1. No evidence of acute intracranial abnormality. 2. Small T2 hyperintense lesion in the central aspect of the babak, may be sequela of chronic ischemic change or nonspecific cystic change. Correlate with clinical findings. If clinically indicated postcontrast imaging be obtained vital signs Vital Sign Date Time Temp Pulse Resp B/P (MAP) Pulse Ox O2 Delivery O2 Flow Rate FiO2 06/28/24 21:00 98.4 67 20 117/80 (92) 97 98.4 06/28/24 08:00 Room Air* 0 21 Total Intake and Output 06/27/24 06/27/24 06/28/24 15:00 23:00 07:00 Intake Total 800 ml Balance 800 ml medications Current Medications Medications Dose Ordered Sig/Paola Route Start Time Stop Time Status Last Admin Dose Admin Levetiracetam 100 ml @ 400 mls/hr BID IV 06/26/24 22:00 06/28/24 08:08 400 MLS/HR Sodium Chloride 10 ml Q8HR IV 06/26/24 14:00 06/28/24 14:00 10 ML Acetaminophen/ Hydrocodone Bitart 1 tab Q4HP PRN PO 06/26/24 11:00 Ondansetron HCl 4 mg Q4HP PRN IV 06/26/24 11:00 Docusate Sodium 100 mg BIDPRN PRN PO 06/26/24 11:00 Acetaminophen 650 mg Q6HP PRN PO 06/26/24 11:00 06/26/24 11:24 650 MG Nitroglycerin 0.4 mg Q5MINP PRN SL 06/26/24 11:00 Morphine Sulfate 2 mg Q30M PRN IV 06/26/24 11:00 Lorazepam 1 mg Q5MINP PRN IV 06/27/24 21:00 objective General: the patient is well developed and nourished. No acute distress. MENTAL STATUS: Awake and alert. Oriented to person, place, time and general circumstances. Able to give personal history. SPEECH, LANGUAGE, HIGHER CORTICAL FUNCTION: no aphasia or dysathria. CRANIAL NERVES: Pupils are equal, round and reactive. EOMs full and conjugate. No nystagmus. Facial sensation intact in all three divisions bilaterally. Mandibular strength intact. Facial muscles symmetrical and strength intact. SENSATION: Sensation to touch and pinprick is normal. MOTOR: Normal tone in the upper and lower extremity. Normal muscle bulk. No fasciculations. No abnormal movements or posturing. Muscle strength of the major groups in the extremities is 5/5. REFLEXES: Deep tendon reflexes are symmetrical. No pathological reflexes. CEREBELLAR/COORDINATION: Finger to nose and heel to gutierrez are normal bilaterally. GAIT/STATION: deferred laboratory and microbiology Laboratory Tests 06/27/24 06:50 Test 06/27/24 06:50 Range/Units Serum Glucose 92 74-106 mg/dL Problem List New onset grand mal seizure TIA in 2021, Partial complex seizure can not be rule out Sleep paralysis Assessment/Plan Monitoring Supportive treatment Telemetry Keppra 500 mg b.i.d. Ativan for seizure breakthrough Avoid sleep deprivation Avoid alcohol Avoid street drugs He has being advised not drive and he is cleared DMV report in the chart No treatment for the sleep paralysis More recommendation per clinical course This medical document was created using an electronic medical record system with [employer] dictation system. Although this document has been carefully reviewed, there may still be some phonetic and typographical errors. These areas are purely typographical due to imperfections of the software programs, and do not reflect any compromise in the patient's medical care. Prognosis poor Plan discussed with: Patient, Other Total Time (mins): 45 HILDA MEDRANO MD Jun 28, 2024 22:00
--- NOTE | 2024-06-28 22:05 | DVHEEG2 ---
Neurology EEG Procedural Note Procedural Note EXAM DATE: 06/28/2024 REFERRING DOCTOR: Dr. Medrano TECHNIQUE: Eighteen channels of EEG, 2 channels of EOG, and 1 channel of EKG were recorded using the [employer] 10/20 system. CLINICAL DATA: The patient was referred for an EEG evaluation for the evidence of seizure disorder. MEDICATIONS: See chart BACKGROUND ACTIVITY: While the patient was awake, the background activity consisted of well regulated 10 Hz rhythmic waveforms, symmetrically distributed over both posterior quadrants and was reactive to eye opening. ACTIVATION: Hyperventilation: Not done Photic Stimulation: No photic convulsive response Sleep: Noticed IMPRESSION: This is a normal EEG. No focal, lateralized, or epileptiform features are noted. If clinically indicated to rule out a seizure disorder, recommend repeat EEG with sleep deprivation. The EKG channel showed a regular heart rate of 66 per minute [place] [address] HILDA MEDRANO MD Jun 28, 2024 22:05
== END 2024-06-28 23:59 | disposition home or self-care (01) | DRG 101 ==
LOC: ER 22:37 → EDBD 22:37 → TELE 06-26 10:58 → TELE-WESTW 06-26 22:45
PROVIDERS: ADMIT Internal Medicine; ATTEND Internal Medicine
DX: G40.409 Other generalized epilepsy and epileptic syndromes, not intractable, without status epilepticus (principal); R47.81 Slurred speech; G47.8 Other sleep disorders; I10 Essential (primary) hypertension; Z86.73 Personal history of transient ischemic attack (TIA), and cerebral infarction without residual deficits; Z79.82 Long term (current) use of aspirin; Z79.899 Other long term (current) drug therapy; Z83.3 Family history of diabetes mellitus; Z82.49 Family history of ischemic heart disease and other diseases of the circulatory system; Z82.3 Family history of stroke
CPT/HCPCS: 36415; 70450; 70551; 71045; 80053; 80307; 80320; 81001; 82962; 83036; 83735; 85025; 93005; 95819; G0378